=== PATIENT | female | born 1950 | race Caucasian/White ===

== ENCOUNTER 2018-09-19 17:38 | Emergency (ER) | payer SELFPAY ==
[~2018-09-19] VITALS: Ht 162.6 cm; Wt 78.0 kg
[~2018-09-19 17:38] MED LIST: PROM25TA14 PO
[2018-09-19 17:49] VITALS: BP 102/67; PULSE 117; RESP 20; Ht 162.6 cm; Wt 78.0 kg
== END 2018-09-19 18:45 | disposition left against medical advice (07) ==
LOC: E/R 17:38
DX: Z53.21 Procedure and treatment not carried out due to patient leaving prior to being seen by health care provider (principal)